=== PATIENT | male | born 1950 | race Caucasian/White ===

== ENCOUNTER → 2023-12-04 06:37 | Outpatient (REF) | payer MEDICARE, OTHER, SELFPAY | LOC: RAD 06:37 | PROVIDERS: ATTENDING PHYSICIAN Physician Assistant | DX: I73.9 Peripheral vascular disease, unspecified (principal) | CPT/HCPCS: 93922; 93925; 93978 ==

== ENCOUNTER 2023-12-18 10:10 | Day surgery (SDC) | payer MEDICARE, OTHER, SELFPAY ==
[2023-12-18] VITALS (16 sets, daily range): BP systolic 114–145; BP diastolic 59–82
[2023-12-18 11:14] LABS: Hematocrit 43.3 % (39.0-52.0); Hemoglobin 15.1 g/dL (13.0-18.0); Mean Corp Hgb Conc. 34.9 g/dL (33.0-37.0); Mean Corpuscular Hgb 29.8 pg (27.0-31.0); Mean Corpuscular Volume 85.4 fL (80.0-94.0); Mean Platelet Volume 8.7 fL (7.4-10.4); Platelet Count 253 10^3/uL (130-400); Red Blood Cell Count 5.07 10^6/uL (4.70-6.10); Red Cell Dist. Width 12.1 % (11.5-14.5); White Blood Cell Count 10.2 10^3/uL (4.8-10.8)
[2023-12-18 11:22] LABS: APTT 27.9 Sec (23.4-35.0)
[2023-12-18 11:23] LABS: Blood Urea Nitrogen 15 mg/dl (9-20); Calcium 9.6 mg/dl (8.4-10.2); Carbon Dioxide 26 mmol/L (22-30); Chloride 98 mmol/L (98-107); Estimated Creatinine Clearance 60 ml/min; Glucose 103 mg/dl (70-99); Potassium 3.9 mmol/L (3.5-5.1); Sodium 133 mmol/L (135-145); eGFR > 60.00
--- NOTE | 2023-12-18 12:13 | W.SUR.PREOP ---
Pre-Operative Surgical Note
-
I have examined this patient prior to the performance of the scheduled procedure.
The patient's condition is unchanged from the time of the current History and
Physical and the patient is able to undergo the scheduled procedure.
--- NOTE | 2023-12-18 15:41 | W.IMMPOSTOP ---
Surgical Immed Post Op Note
-
Primary Surgeon: Dr. Héctor Thurston III, MD
Assisting Surgeon: Dr. Prem Silva MD, PhD (PGY-1)
Pre-op Diagnosis: Right lower extremity occlusive peripheral arterial disease
Post-op Diagnosis: Right lower extremity occlusive peripheral arterial disease
Procedure Performed: Diagnostic arteriogram, drug coated balloon angioplasty of right SFA and right EXHIBIT PREPARATOR, balloon angioplasty and stent x1 of right SFA
Anesthesia Type: MAC
Specimen / Cultures: None
Estimated Blood Loss: Minimal
Complications: None
Operative Findings: Patient was brought to the OR and placed in supine position. Bilateral groins were prepped and draped in usual sterile fashion. Ultrasound guidance was used to identify the left EXHIBIT PREPARATOR. C arm was used to oren the superior and
inferior aspects of the femoral head on the skin. Micropuncture kit was used to access the left EXHIBIT PREPARATOR. A 5 [place] sheath was advanced over a [place] wire. A mendoza's hook catheter was advanced over wire into the distal abdominal aorta. Diagnostic
arteriogram was performed and showed disease in the right EXHIBIT PREPARATOR and right SFA. A drug coated balloon angioplasty was performed at these two sites. Then, a balloon angioplasty and stent x1 was deployed in the right SFA. Completion arteriogram showed 3
vessel run off at the conclusion of the case. Additionally, contrast in the left ilio-femoral system showed no evidence of extravasation or injury at the puncture site. At the conclusion of the case, palpable pulses were noted in the DP bilaterally,
and bilateral DP/PT pulses were dopplerable. The 5-[place] k[place] sheath was removed and manual occlusive pressure held for 20 minutes in the OR before transporting the patient to the PACU in stable condition.
--- NOTE | 2023-12-18 15:42 | OR.RPT ---
Operative Report
Operative Report
Date of Operation: 12/18/2023
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
Procedure:
1.) Drug-coated balloon angioplasty of right proximal superficial femoral artery (5 mm x 40 mm Lutonix)
2.) Drug-coated balloon angioplasty of right common femoral artery (7 mm x 40 mm Lutonix)
3.) Balloon angioplasty and stenting of proximal right superficial femoral artery stenosis (6 mm x 60 mm LifeStent)
4.) Diagnostic aortobiiliac arteriogram
5.) Diagnostic right lower extremity arteriogram
6.) Ultrasound-guided percutaneous access to the left common femoral artery
Surgeon: Héctor Thurston III, MD
Welding Instructor: Prem Silva MD PhD, PGY1
Anesthesia: Sedation with local
Fluoroscopy:
14.8 min
310 mGy
72.78 Gy.cm2
Complications: None
Estimated Blood Loss: Less than 20 cc
History and Indications for Procedure: 73-year-old male with high-grade stenosis of the proximal right superficial femoral artery on duplex imaging. He is status post right common femoral artery endarterectomy with patch angioplasty.
Procedure in Detail: Rk Love was correctly identified and placed supine on the operating table. After adequate induction of anesthesia the bilateral groins were prepped and draped in the usual sterile fashion. A timeout was performed with the
nursing and anesthesia staff confirming the patient's identity as well as the nature and laterality of the procedure.
The left common femoral artery was identified under ultrasound guidance. The artery was patent. A high femoral bifurcation was identified. The superior and inferior aspects of the femoral head were identified with radiographic guidance and marked
at the skin level. The proposed puncture site was infiltrated with local anesthesia. We saved a copy of the ultrasound image to the medical record. Under ultrasound guidance we accessed the left common femoral artery with a micropuncture needle and
upsized to a 5 Fr sheath over a Bentson wire. The wire and a ShepherCopytele hook flush catheter were advanced into the distal abdominal aorta and a diagnostic aorto-biiliac arteriogram was performed:
AORTO-ILIAC ARTERIOGRAM:
Aorta: Patent with no significant stenosis identified
Right common iliac artery: Patent with no significant stenosis identified
Right external iliac artery: Patent with no significant stenosis identified
Left common iliac artery: Patent with no significant stenosis identified
Left external iliac artery: Patent with no significant stenosis identified
Under roadmap guidance using a Glidewire and the ShepherCopytele hook catheter we selected the right common iliac artery and then the external iliac artery. A catheter was tracked up and over the aortic bifurcation and placed in the distal external iliac
artery. A diagnostic right lower extremity arteriogram was then performed which demonstrated the following:
RIGHT LOWER EXTREMITY:
Common femoral artery: Patent femoral endarterectomy site. Mild to moderate smooth appearing stenosis in the proximal to mid aspect of the femoral endarterectomy
Profunda femoral artery: Patent with no significant stenosis identified
Superficial femoral artery: Short segmental high-grade stenosis at the origin and proximal extent of the superficial femoral artery. Patent distally. Focal calcified plaque distally contributing to mild stenosis
Popliteal artery: Patent with no significant stenosis identified
Anterior tibial artery: Patent
Tibioperoneal trunk: Patent
Peroneal artery: Patent
Posterior tibial artery: Patent
ENDOVASCULAR INTERVENTION: Systemic heparin was administered. Exchanged out for a 6 Fr 45 cm sheath over a Storq wire. Selected the superficial femoral artery under roadmap guidance with Quickcross catheter and glidewire. The proximal stenosis was
crossed with a Quickcross and Glidewire. The wire and catheter were advanced into the mid superficial femoral artery and subtraction angio confirmed proper position in the true lumen. Exchanged out for a Storq wire. A 5 mm x 40 mm drug-coated
angioplasty balloon was placed across the proximal SFA stenosis under roadmap guidance. The balloon was inflated to nominal pressure, held in place for 2 minutes and then slowly deflated and removed over the wire. I then brought into position a 7
mm x 40 mm drug-coated angioplasty balloon and placed this across the common femoral artery stenosis under roadmap guidance. The balloon was inflated to nominal pressure, held in place for 2 minutes and then slowly deflated and removed over the
wire. Subsequent arteriogram demonstrated a nice result with only mild residual stenosis in the common femoral artery however a more significant residual stenosis was identified in the treated superficial femoral artery segment. I then brought into
position a 6 mm x 60 mm LifeStent and positioned this across the residual proximal SFA stenosis under roadmap guidance. The stent was deployed in the desired location and the delivery system removed over the wire. A 5 mm angioplasty balloon was used
to profile the entire length of the stent.
COMPLETION ARTERIOGRAM: Good technical result. Brisk flow through the common femoral artery and superficial femoral artery. Widely patent superficial femoral artery stent with only mild residual stenosis identified. Three-vessel tibial runoff
identified.
Satisfied with this result we concluded the procedure. The sheath tip was pulled back into the left external iliac artery. Protamine was administered.
The patient tolerated the procedure well and was taken to the recovery area in stable condition.
Attestation: I was present and responsible for the entire procedure.
Signed:
Héctor Thurston III, MD
[facility]
[phone] (cell)
[2023-12-18] MEDS: NSS 1000 IV (17:01)
== END 2023-12-18 21:17 | disposition home or self-care (01) ==
LOC: CATH 10:10
PROVIDERS: ATTENDING PHYSICIAN Surgery Vascular Surgery; FAMILY PHYSICIAN Family Medicine; OTHER PHYSICIAN Internal Medicine Cardiovascular Disease
DX: I70.211 Atherosclerosis of native arteries of extremities with intermittent claudication, right leg (principal); I10 Essential (primary) hypertension; E78.5 Hyperlipidemia, unspecified; Z79.02 Long term (current) use of antithrombotics/antiplatelets; Z87.891 Personal history of nicotine dependence
CPT/HCPCS: 37226; 75625; 75710; 76937; 80048; 85027; 85610; 85730; C1725; C1769; C1874; C1894; Q9967

== ENCOUNTER → 2024-02-02 14:35 | Outpatient (REF) | payer MEDICARE, OTHER, SELFPAY | LOC: DHVS 14:35 | PROVIDERS: ATTENDING PHYSICIAN Surgery Vascular Surgery | DX: I73.9 Peripheral vascular disease, unspecified (principal) | CPT/HCPCS: 93922; 93925 ==

== ENCOUNTER → 2024-07-11 08:49 | Outpatient (REF) | payer MEDICARE, OTHER, SELFPAY | LOC: RAD 08:49 | PROVIDERS: ATTENDING PHYSICIAN Physician Assistant; FAMILY PHYSICIAN Family Medicine | DX: I73.9 Peripheral vascular disease, unspecified (principal) | CPT/HCPCS: 93922; 93925; 93978 ==

== ENCOUNTER → 2025-02-27 07:15 | Outpatient (REF) | payer MEDICARE, OTHER, SELFPAY | LOC: RAD 07:15 | PROVIDERS: ATTENDING PHYSICIAN Physician Assistant; FAMILY PHYSICIAN Family Medicine | DX: I73.9 Peripheral vascular disease, unspecified (principal) | CPT/HCPCS: 93922; 93925; 93978 ==